=== PATIENT | male | born 1995 | race Caucasian/White ===

== ENCOUNTER 2020-11-26 12:44 | Emergency (ER) | payer OTHER ==
[2020-11-26 13:02] VITALS: O2SAT 98
--- NOTE | 2020-11-26 13:15 | ERPHSYRPT ---
- History of Present Illness Time Seen by Provider: 11/26/20 13:00 Source: patient Exam Limitations: no limitations Patient Subjective Stated Complaint: Pt states two days ago he was thrown off horse and hit telephone pole. Been having pain to right rib cage. Seen at [facility] this morning. They called and notified him of 4 broken ribs and to come be evaluated in ER. Pt states it is difficult to take a deep breath but no acute shortness of breath. Triage Nursing Assessment: Pt skin pink, warm, dry. LUng sounds clear, equal, bilaterally. Respirations non-labored. Equal chest rise and fall. No flail chest noted. Very tender on palpation of right flank/chest. Physician History: This is a 25-year-old white male who is very active at his work attempted lifting bending twisting crawling and presents with right anterolateral rib pain for 2 days. Patient was thrown off a horse 2 days ago and hit a telephone pole. He sought medical attention in the urgent care clinic this morning. A chest x- ray was obtained which showed nondisplaced fractures of the anterior arc 7, 8, 9, 10 ribs. There was no evidence of any soft tissue abnormality. Patient was notified by home to follow-up in the emergency department for further evaluation. Patient denies cough. He denies shortness of breath. He did not receive any prescriptions for pain control. Timing/Duration: day(s) (2) Severity: moderate (With deep breath) Associated Symptoms: denies symptoms Allergies/Adverse Reactions: amoxicillin Allergy (Verified 11/26/20 13:07) Unknown-pt states just what his mom always said Home Medications: No Home Meds [No Home Meds] 1 jacquelin MADRIGAL UD 02/28/16 [History] Hx Tetanus, Diphtheria Vaccination/Date Given: Yes Hx Influenza Vaccination/Date Given: No Hx Pneumococcal Vaccination/Date Given: No Travel Risk - International Travel Have you traveled outside of the country in past 3 weeks: No - Coronavirus Screening Are you exhibiting any of the following symptoms?: No Close contact with a COVID-19 positive Pt in past 14-21 Days: No - Vaccine Status Have you recieved a Covid-19 vaccination: No - Review of Systems Constitutional: No Symptoms Eyes: No Symptoms Ears, Nose, & Throat: No Symptoms Respiratory: No Symptoms Cardiac: No Symptoms Abdominal/Gastrointestinal: No Symptoms Genitourinary Symptoms: No Symptoms Musculoskeletal: Other (Right side rib pain) Skin: No Symptoms Neurological: No Symptoms Psychological: No Symptoms Endocrine: No Symptoms Hematologic/Lymphatic: No Symptoms Immunological/Allergic: No Symptoms All Other Systems: Reviewed and Negative - Past Medical History Pertinent Past Medical History: Yes Respiratory History: Asthma - Past Surgical History Past Surgical History: No - Social History Smoking Status: Never smoker Exposure to second hand smoke: No Drug Use: none Patient Lives Alone: Yes - Nursing Vital Signs Nursing Vital Signs: Initial Vital Signs Temperature 98.3 F 11/26/20 12:44 Pulse Rate 80 11/26/20 12:44 Respiratory Rate 16 11/26/20 12:44 Blood Pressure 146/90 11/26/20 12:44 O2 Sat by Pulse Oximetry 98 11/26/20 12:44 Pain Scale Pain Intensity 4 - Physical Exam General Appearance: no apparent distress, alert, anxiety Eye Exam: PERRL/EOMI, eyes nml inspection Ears, Nose, Throat Exam: normal ENT inspection, moist mucous membranes Neck Exam: normal inspection, non-tender, supple, full range of motion Respiratory Exam: normal breath sounds, chest tenderness (With deep breath in the right anterolateral region. Also tender to palpation. There is no evidence of any paradoxical rib movement in that area.), lungs clear, No respiratory distress, No wheezing Cardiovascular Exam: regular rate/rhythm, normal heart sounds, normal peripheral pulses Gastrointestinal/Abdomen Exam: No tenderness Rectal Exam: not done Back Exam: normal inspection, normal range of motion, No CVA tenderness, No vertebral tenderness Extremity Exam: normal inspection, normal range of motion, pelvis stable Neurologic Exam: alert, oriented x 3, cooperative, experimental box tester II-XII nml as tested, normal mood/affect, nml cerebellar function, nml station & gait, sensation nml Skin Exam: normal color, warm, dry Lymphatic Exam: No adenopathy SpO2 Interpretation: normal SpO2: 98 O2 Delivery: Room Air - Course Nursing assessment & vital signs reviewed: Yes - Progress Progress: pain not gone completely Counseled pt/family regarding: diagnosis, need for follow-up, rad results - Departure Departure Disposition: Home Clinical Impression: Ribs, multiple fractures Condition: Stable Critical Care Time: No Referrals: DOCTOR,NO FAMILY [Primary Care Provider] - Additional Instructions: Take your medication as prescribed. Follow-up with a primary care doctor within a week's time for further management of your pain and for clearance to return back to work. Forms: Work/School Release Form Prescriptions: Oxycodone HCl/Acetaminophen [Percocet 5-325 mg Tablet] 1 each PO Q8H PRN PRN #12 tablet MDD 3 PRN Reason: Pain Cyclobenzaprine HCl 10 mg [Cyclobenzaprine 10 MG] 10 mg PO TID #10 tablet
[2020-11-26 13:47] VITALS: BP 120/73; PULSE 72
== END 2020-11-26 13:54 | disposition home or self-care (01) ==
LOC: ED 12:44
DX: S22.41XA Multiple fractures of ribs, right side, initial encounter for closed fracture (principal); R07.89 Other chest pain; V80.8 Animal-rider or occupant of animal-drawn vehicle injured in collision with fixed or stationary object
CPT/HCPCS: 99283

== ENCOUNTER 2021-10-01 21:31 | Emergency (ER) | payer OTHER ==
[2021-10-01] MEDS ORDERED: TORAdol 30 mg Injection IM ONE (21:57)
[2021-10-01] MEDS ORDERED: TORAdol 30 mg Injection ONE (21:59)
[2021-10-01] MEDS ORDERED: BACIGUENT 30 GM ONE (22:59)
--- NOTE | 2021-10-01 23:16 | ERPHSYRPT ---
- History of Present Illness Time Seen by Provider: 10/01/21 21:55 Patient Subjective Stated Complaint: pt states "I was working on the fridge. I thought all the liquid was out but it wasn't and I got it on me." Triage Nursing Assessment: pt ambulated into the er; pt is axo x4; c/o chemical burn to roopa hands; pt states 8/10 pain to rt hand; 1st degree burn present palm of rt hand; no blister present to roopa palms; rt hand worse than left; left hand 1st degree burn present; good cap refill to roopa hands; strong radial pulses; vital wnl Physician History: Patient is a 26-year-old male presents to emergency department for evaluation of burn to his right hand. Patient was working on a refrigerator and a chemical burn to his hand approximately 6 to 7 hours prior to arrival. Patient took a oral pain medication after the burn and pain was controlled. Patient states the pain just started to recur which brought patient into our ED. Pain described as a burning sensation. Patient has not washed his hand since the burn. Patient voices no other complaints concerns at this time. The burn is approximately 0.5% BSA involving the radial aspect of his right hand Timing/Duration: today Severity: moderate Modifying Factors: Improves With: nothing Associated Symptoms: denies symptoms Allergies/Adverse Reactions: amoxicillin Allergy (Verified 10/01/21 21:49) Unknown-pt states just what his mom always said Home Medications: Atomoxetine HCl [Strattera] 40 mg PO DAILY 10/01/21 [History] Hx Tetanus, Diphtheria Vaccination/Date Given: Yes Hx Influenza Vaccination/Date Given: No Hx Pneumococcal Vaccination/Date Given: No Travel Risk - International Travel Have you traveled outside of the country in past 3 weeks: No - Coronavirus Screening Are you exhibiting any of the following symptoms?: No Close contact with a COVID-19 positive Pt in past 14-21 Days: No - Vaccine Status Have you recieved a Covid-19 vaccination: No - Review of Systems Constitutional: No Symptoms, No Fever, No Chills Eyes: No Symptoms Ears, Nose, & Throat: No Symptoms Respiratory: No Symptoms, No Cough, No Dyspnea Cardiac: No Symptoms, No Chest Pain, No Edema, No Syncope Abdominal/Gastrointestinal: No Symptoms, No Abdominal Pain, No Nausea, No Vomiting, No Diarrhea Genitourinary Symptoms: No Symptoms, No Dysuria Musculoskeletal: No Symptoms, No Back Pain, No Neck Pain Skin: No Symptoms, No Rash Neurological: No Symptoms, No Dizziness, No Focal Weakness, No Sensory Changes Psychological: No Symptoms Endocrine: No Symptoms Hematologic/Lymphatic: No Symptoms Immunological/Allergic: No Symptoms All Other Systems: Reviewed and Negative - Past Medical History Pertinent Past Medical History: Yes Respiratory History: Asthma Psycho-Social History: Attention Deficit Disorder - Past Surgical History Past Surgical History: No - Social History Smoking Status: Current every day smoker Exposure to second hand smoke: No Drug Use: none Patient Lives Alone: No - Nursing Vital Signs Nursing Vital Signs: Initial Vital Signs Temperature 97.9 F 10/01/21 21:50 Pulse Rate 79 10/01/21 21:50 Respiratory Rate 18 10/01/21 21:50 Blood Pressure 128/80 10/01/21 21:50 O2 Sat by Pulse Oximetry 98 10/01/21 21:50 Pain Scale Pain Intensity 6 - Physical Exam General Appearance: no apparent distress, alert Eye Exam: PERRL/EOMI, eyes nml inspection Ears, Nose, Throat Exam: normal ENT inspection, TMs normal, pharynx normal, moist mucous membranes Neck Exam: normal inspection, non-tender, supple, full range of motion Respiratory Exam: normal breath sounds, lungs clear, airway intact, No r espiratory distress Cardiovascular Exam: regular rate/rhythm, normal heart sounds, normal peripheral pulses Gastrointestinal/Abdomen Exam: soft, normal bowel sounds, No tenderness, No mass Back Exam: normal inspection, normal range of motion, No CVA tenderness, No vertebral tenderness Extremity Exam: normal inspection, normal range of motion, pelvis stable Neurologic Exam: alert, oriented x 3, cooperative, normal mood/affect, nml cerebellar function, nml station & gait, sensation nml, No motor deficits Skin Exam: normal color, warm, dry, other (Superficial burn to the radial aspect of the palmar surface of his right hand. No blistering. Skin is intact. Patient's hand is dirty he has not washed his hand since the burn.), No rash Lymphatic Exam: No adenopathy SpO2 Interpretation: normal SpO2: 98 O2 Delivery: Room Air - Course Nursing assessment & vital signs reviewed: Yes Ordered Tests: Active Orders 24 hr Category Date Time Status Wound Care STAT Care 10/01/21 23:08 Active Medication Summary Generic Name Dose Route Start Last Admin Trade Name Yoni PRN Reason Stop Dose Admin Bacitracin Zinc 1 gm 10/02/21 10:00 10/01/21 23:03 Bacitracin Zinc 28 Gm Tube TP 11/01/21 09:59 1 gm BID CARIDAD Administration Discontinued Medications Generic Name Dose Route Start Last Admin Trade Name Yoni PRN Reason Stop Dose Admin Ketorolac Tromethamine 60 mg 10/01/21 21:57 10/01/21 22:00 Ketorolac Tromethamine 30 Mg/Ml Inj IM 10/01/21 21:58 60 mg STAT ONE Administration Ketorolac Tromethamine Confirm 10/01/21 21:59 Ketorolac Tromethamine 30 Mg/Ml Inj Administered 10/01/21 22:00 Dose 60 mg .ROUTE .[id number] [id number] - Progress Progress: improved Progress Note: Patient's hand was irrigated and cleaned with mild soap in our bursa department. The hand was inspected. Compartments are soft. Cap refill less than 2 seconds. The burn is a superficial thickness. No blistering. The hand is neurovascular intact distally. Radial pulse palpable. After copious irrigation and cleaning bacitracin was applied to the injured hand. Patient agrees to follow-up with primary care doctor within 48 hours for evaluation. Patient received Toradol IM for pain control. A prescription for Toradol was provided to patient as well. Portions of this note were created with voice recognition technology. There may be grammatical, spelling, punctuation or sound alike errors 10/01/21 23:28 Counseled pt/family regarding: diagnosis, need for follow-up - Departure Departure Disposition: Home Clinical Impression: Superficial burn Condition: Stable Critical Care Time: No Referrals: TRAVIS WHITE NP [Primary Care Provider] - Follow up/PCP as directed Instructions: Skin Fischer Additional Instructions: Discharge/Care Plan JESIIVETH VASQUEZ was seen on 10/01/21 in the Emergency Room. The patient was counseled regarding Diagnosis,Lab results, Imaging studies, need for follow up and when to return to the Emergency Room. Prescriptions given: Discharge Note I have spoken with the patient and/or caregivers. I have explained the patient's condition, diagnosis and treatment plan based on the information available to me at this time. I have answered the patient's and/or caregiver's questions and addressed any concerns. The patient and/or caregivers have as good understanding of the patient's diagnosis, condition and treatment plan as can be expected at this point. The vital signs have been stable. The patient's condition is stable and appropriate for discharge from the emergency department. The patient will pursue further outpatient evaluation with the primary care physician or other designated or consulting physician as outlined in the discharge instructions. The patient and/or caregivers are agreeable to this plan of care and follow-up instructions have been explained in detail. The patient and/or caregivers have received these instruction. The patient/and or caregivers are aware that any significant change in condition or worsening of symptoms should prompt an immediate return to this or the closest emergency department or call 911.
[2021-10-01 23:21] VITALS: BP 122/72; PULSE 76
[2021-10-01 23:25] VITALS: O2SAT 98
[2021-10-02] MEDS ORDERED: BACIGUENT 30 GM TP SCH (10:00)
== END 2021-10-01 23:23 | disposition home or self-care (01) ==
LOC: ED 21:31
DX: T23.551A Corrosion of first degree of right palm, initial encounter (principal); T65.91XA Toxic effect of unspecified substance, accidental (unintentional), initial encounter; Y93.E9 Activity, other interior property and clothing maintenance; M79.641 Pain in right hand; Z72.0 Tobacco use
CPT/HCPCS: 96372; 99283; J1885; A9270-GY